=== PATIENT | male | born 1980 | race Caucasian/White ===

== ENCOUNTER 2017-03-27 17:40 | Emergency (ER) | payer OTHER ==
[~2017-03-27] VITALS: Ht 182.9 cm; Wt 135.0 kg
[~2017-03-27 17:40] MED LIST: LISI-360 PO; VIBR100C PO
[2017-03-27 17:58] VITALS: BP 161/82; PULSE 77; RESP 16; TEMP 98.4; O2SAT 98
--- NOTE | 2017-03-27 19:03 | RADRPT ---
EXAM DATE/TIME: 03/27/2017 18:34 [place] COMPARISON: No previous studies available for comparison. INDICATIONS : Bone infarction. MEDICAL HISTORY : Previously broken great toe. SURGICAL HISTORY : None. ENCOUNTER: Initial ACUITY: 2 days PAIN SCORE: 7/10 LOCATION: Right plantar surface of first through third digits FINDINGS: There is no acute fracture or dislocation of the right foot. Degenerative arthritis is noted involvi ng the right 1st interphalangeal joint. Soft tissue swelling is noted along the medial aspect of the great toe. Erosive changes are noted involving the medial aspect of the 1st metatarsal head which r aises the possibility of gouty arthritis. Mild degenerative changes are noted involving the ankle jerel int. CONCLUSION: 1. No acute fracture or dislocation. 2. Soft tissue swelling involving the medial aspect of the right great toe with erosive changes celeste g the medial aspect of the 1st metatarsal heads suggestive of possible gouty arthritis. Clinical cor relation is recommended. 3. 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 Rhys Hollins MD on March 27, 2017 at 18:48 Board Certified Radiologist. This report was verified electronically.
[2017-03-27] MEDS ORDERED: ceFAZolin 2 GM PREMIX 50 ML IV ONE (20:00)
[2017-03-27] MEDS ORDERED: CIPROFLOXACIN 400 MG PREMIX 200 ML IV ONE (20:00)
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
[2017-03-27] MEDS ORDERED: LOSA100T PO (20:32)
[2017-03-27] MEDS ORDERED: NOVOINJ SQ (20:32)
[2017-03-27 20:34] LABS: AUTOMATED NEUTROPHIL # 12.8 TH/MM3 (1.8-7.7); BASOPHIL # 0.1 TH/MM3 (0-0.2); BASOPHIL % 0.6 % (0.0-2.0); EOSINOPHIL # 0.2 TH/MM3 (0-0.4); HEMO FLAGS DIFF FINAL; LYMPH % 16.9 % (9.0-44.0); LYMPHOCYTE # 2.9 TH/MM3 (1.0-4.8); MEAN CELL VOLUME 84.1 FL (80.0-100.0); MEAN CORPUSCULAR HEMOGLOBIN 29.2 PG (27.0-34.0); MEAN CORPUSCULAR HGB CONC 34.7 % (32.0-36.0); MONO % 5.9 % (0.0-8.0); NEUT % 75.6 % (16.0-70.0); PLATELET COUNT 300 TH/MM3 (150-450); RED BLOOD COUNT 4.76 MIL/MM3 (4.50-5.90); RED CELL DISTRIBUTION WIDTH 13.7 % (11.6-17.2)
[2017-03-27 20:54] LABS: BICARBONATE 28.8 MEQ/L (21.0-32.0); POTASSIUM 3.7 MEQ/L (3.5-5.1)
[2017-03-27] MEDS ORDERED: GLIM4TAB PO (21:08)
[2017-03-27] MEDS ORDERED: INSU1INJ14 SQ (21:08)
[2017-03-27] MEDS ORDERED: CIPR-9 PO (22:21)
[2017-03-27] MEDS ORDERED: CEPH-460 PO (22:21)
[2017-03-27] MEDS ORDERED: CIPROFLOXACIN 500 MG TAB PO ONE (22:30)
[2017-03-27] MEDS ORDERED: CEPHALEXIN MONOHYDRATE 500 MG CAP PO ONE (22:30)
== END 2017-03-27 23:35 | disposition home or self-care (01) ==
LOC: NEPD 17:40
DX: L03.031 Cellulitis of right toe (principal); B95.61 Methicillin susceptible Staphylococcus aureus infection as the cause of diseases classified elsewhere; B95.1 Streptococcus, group B, as the cause of diseases classified elsewhere; B96.89 Other specified bacterial agents as the cause of diseases classified elsewhere; I10 Essential (primary) hypertension; M79.89 Other specified soft tissue disorders; E11.9 Type 2 diabetes mellitus without complications; G62.9 Polyneuropathy, unspecified
CPT/HCPCS: 73630; 80048; 85025; 86403; 87040; 87070; 87077; 87186; 96365; 96366; 96375; 99284; J0690; J0744; 87205

== ENCOUNTER 2018-07-11 19:38 | Inpatient (IN) ==
[2018-07-11 21:06] LABS: Baso # (Auto) 0.1 th/mm3 (0.0-0.2); Baso % (Auto) 0.5 % (0.0-2.0); Eos # (Auto) 0.4 th/mm3 (0.0-0.4); Eos % (Auto) 3.5 % (0.0-4.0); Hematocrit 35.9 % (39.0-51.0); Hemoglobin 12.4 gm/dL (13.0-17.0); Lymph # (Auto) 3.2 th/mm3 (1.0-4.8); Lymph % (Auto) 27.5 % (9.0-44.0); Mean Corpuscular HGB Conc 34.6 % (32.0-36.0); Mean Corpuscular Hemoglobin 28.5 pg (27.0-34.0); Mean Corpuscular Volume 82.3 fL (80.0-100.0); Mean Platelet Volume 7.1 fL (7.0-11.0); Mono # (Auto) 0.9 th/mm3 (0.0-0.9); Mono % (Auto) 8.1 % (0.0-8.0); Neut % (Auto) 60.4 % (16.0-70.0); Platelet Count 405 th/mm3 (150-450); Red Blood Count 4.36 mil/mm3 (4.50-5.90); Red Cell Distribution Width 13.6 % (11.6-17.2); White Blood Count 11.5 th/mm3 (4.0-11.0)
--- NOTE | 2018-07-11 21:15 | XR ---
EXAM DATE: 07/11/2018 9:10 PM EST AGE/SEX: 38 years / Male INDICATIONS: Left foot pain, swelling with no known injury. Diabetic ulcer on plantar surface of eugenie t. CLINICAL DATA: This is the patient's initial encounter. Patient reports that signs and symptoms have been present for 3 weeks and indicates a pain score of 6/10. MEDICAL/SURGICAL HISTORY: Diabetes. None. COMPARISON: No prior exams available for comparison. FINDINGS: There is fracture dislocations involving the first through fifth tarsometatarsal joints with heteroto pic bone formation and bone fragmentation. First and second metatarsals are displaced medially and th e third through fifth are displaced laterally. Overall the tarsal bones have been displaced towards t he plantar surface relative to the base of the metatarsal bones. Diffuse soft tissue swelling. No rad iopaque foreign body. CONCLUSION: Lisfranc fracture and neuropathic joint. Electronically signed by: Nirmal Sommers MD Board Certified Radiologist 07/11/2018 9:13 PM EST
[2018-07-11 21:30] LABS: Albumin 3.3 g/dL (3.4-5.0); Anion Gap 5 meq/L (5-15); Aspartate Aminotransferase 12 U/L (15-37); Blood Urea Nitrogen 12 mg/dL (7-18); Calcium 9.1 mg/dL (8.5-10.1); Carbon Dioxide 29.7 meq/L (21.0-32.0); Chloride 102 meq/L (98-107); Glomerular Filtration Rate Greater Than 89 mL/min (>89); Glucose,Random 91 mg/dL (74-106); Potassium 3.8 meq/L (3.5-5.1); Sodium 137 meq/L (136-145)
[2018-07-11 21:32] LABS: Alanine Aminotransferase 21 U/L (12-78)
[2018-07-11 21:33] LABS: Alkaline Phosphatase 109 U/L (45-117); Total Protein 8.3 g/dL (6.4-8.2)
--- NOTE | 2018-07-11 22:32 | ED ---
HPI General Chief complaint: Extremity Problem,Nontraumatic Stated complaint: Lt foot injury Time Seen by Provider: 07/11/18 20:19 Source: patient Mode of arrival: ambulatory Limitations: no limitations History of Present Illness HPI Narrative: 38-year-old male with a history of diabetes and ulcers to his feet bilaterally that presents to the ED for evaluation of swelling and redness to his left foot. Per patient it started almost a week ago. Per patient is causing him a lot of discomfort and he has been using a boot to get about. Per patient the pain is 6 out of 10. He denies any trauma or injury. Per patient she follows with Dr. Navas for podiatry closely. And has been on 3 different antibiotics including Cipro x2 and Bactrim x1. Per patient he follows with her secondary to ulcers to both his feet. Per patient the ulcers appear to have improved and currently he is in no antibiotics. Per patient he last saw Dr. Navas last week and he did not had the swelling at the time. He states having some numbness which appears to be chronic for him. No trauma or fall. No fevers chills or sweats. Related Data Home Medications Medication Instructions Recorded Confirmed insulin aspart U-100 [Novolog 5 unit SUBCUT QPM 07/11/18 07/11/18 Flexpen U-100 Insulin] losartan 100 mg PO DAILY 07/11/18 07/11/18 Allergies Allergy/AdvReac Type Severity Reaction Status Date / Time No Known Allergies Allergy Verified 07/11/18 20:12 Review of Systems ROS: all other systems reviewed are negative [facility] Medical History Medical History Diabetes (Acute) Hypertension (Acute) Surgical History Surgical History No history of previous surgery (Acute) Social History Social History Substance History: No History of Abuse Second Hand Smoke Exposure: Yes Smoking Status: Never smoker How Often Do You Have a Drink Containing Alcohol: Never Recent Travel [facility] within the Last 8 Weeks: No Recent Out of Country Travel within the Last 8 Weeks: No Immunization History Tetanus Immunization: <5 Years Exam Narrative Exam Narrative: GENERAL: Well-appearing SKIN: Focused skin assessment warm/dry. HEAD: Atraumatic. Normocephalic. EYES: Pupils equal and round. No scleral icterus. No injection or drainage. ENT: No nasal bleeding or discharge. Mucous membranes pink and moist. Tongue is midline. No Uvula deviation. NECK: Trachea midline. No JVD. CARDIOVASCULAR: Regular rate and rhythm. No murmur appreciated. RESPIRATORY: No accessory muscle use. Clear to auscultation. Breath sounds equal bilaterally. GASTROINTESTINAL: Abdomen soft, non-tender, nondistended. Hepatic and splenic margins not palpable. MUSCULOSKELETAL: No obvious deformities. No clubbing. No cyanosis. No edema. Full range of motion of the upper and lower extremities bilaterally. 2+ pulses bilaterally. Patient does have 1+ pitting edema on the foot and erythema as well as swelling and warmness to touch on the medial aspect of the foot but also noted on the dorsal and plantar aspect of the foot. Full range of motion of the digits. Good capillary refill. Patient does have a healing ulcer on the left lower foot. About 2 cm in diameter. NEUROLOGICAL: Awake and alert. No obvious cranial nerve deficits. Motor grossly within normal limits. Normal speech. PSYCHIATRIC: Appropriate mood and affect; insight and judgment normal. Course Initial Documented Vital Signs Temperature 98.4 F 07/12/18 03:14 Pulse Rate 104 H 07/12/18 03:14 Respiratory Rate 18 07/12/18 03:14 Blood Pressure 152/71 H 07/12/18 03:14 Pulse Oximetry 95 07/12/18 03:14 Last Documented Vital Signs Temperature 98.4 F 07/12/18 03:14 Pulse Rate 104 H 07/12/18 03:14 Respiratory Rate 18 07/12/18 03:14 Blood Pressure 152/71 H 07/12/18 03:14 Pulse Oximetry 95 07/12/18 03:14 Medical Decision Making MANISH Attestation MANISH supervised visit: Yes Attestation: I, Dr. Condon, have reviewed the advance practice practitioner's documentation and am in agreement, met with the patient face to face, made the diagnosis, and the medical decision making was done by me. The patient was initially evaluated by Rafa, the MANISH. Please see their complete history and physical. *My assessment and Findings: The patient presents with a history of diabetes and foot ulcers that have been being monitored by Dr. Navas a local field operations supervisor. Over the last week he has developed increased pain and swelling involving the left foot. He denies any injury. He reports that he has been on antibiotic for treatment that includes ciprofloxacin and Bactrim. He denies having any known recent fevers. He reports that it is painful to weight-bear. During the course of the patient's emergency department visit, the patient's history, examination, and differential diagnosis were reviewed with the patient. The patient was placed on a radiation monitor with oximetry and frequent blood pressure monitoring. The patient had [-] IV access obtained and blood work sent for analysis. The patient's diagnostic studies were reviewed and remarkable for a white count of 11.5, hemoglobin 12.4, platelets 405 with 8.1 monocytes, chemistries remarkable for an AST of 12, total protein 8.3, albumin 3.3, C-reactive protein is elevated at 6.6, lactic acid is 1.9 . An x-ray of the left foot reveals a Lisfranc fracture and neuropathic joint. The patient's case was discussed with the field operations supervisor monotypist, Dr. Mitchell by Gabriel, the physician tax accounting assistant. She recommended further evaluation with an MRI. The patient's MRI of the foot revealed evidence of osteomyelitis with deep soft tissue infection. The patient will be admitted to the hospital for IV antibiotic and consultation with a field operations supervisor. The patient was started on broad -spectrum antibiotics to include Zosyn and vancomycin. The patient's case including history, pertinent physical examination findings, and laboratory studies were discussed with Dr. Garcia. It was agreed that the patient would be admitted to the [facility] hospitalist service. The patient's results were discussed with the patient, including the plan of care. I explained that further testing and/ or monitoring is indicated based on the patient's history, examination, and/ or laboratory findings. Therefore, I recommended admission for additional evaluation. The patient expressed understanding and was agreeable with this plan. The patient was admitted to the hospital in guarded condition and sent to a bed under the care of the [facility] hospitalist's service. MDM Narrative Medical decision making narrative: 38-year-old male who presents to the ED for evaluation of lower foot swelling and pain. Patient was properly examined and was found to have signs and symptoms of unclear etiology. Labs and imaging were ordered. Labs and imaging showed what appears to be a Lisfranc fracture of the left foot. This does raise possibility of Charcot. Case was discussed with my attending who recommends to speak with podiatry. I spoke with Dr. Mitchell over the phone who states that this could likely be Charcot but recommends that an MRI be done. She does however state that if there is any sign of skin opening where the erythema to highly consider admitting for IV antibiotics as patient does have an elevated CRP and white blood cell count. Case discussed with my attending who agrees with plan. MRI was ordered. MRI showed Medical Screen Exam Complete: Yes Emergency Medical Condition: Yes Differential Diagnosis Differential Diagnosis: Diabetic ulcer versus cellulitis versus fracture versus foreign body versus osteomyelitis Medical Records Medical records reviewed: Yes I reviewed the patient's medical records. Lab Data Lab results reviewed: Yes I reviewed the patient's lab results. Result diagrams: 07/11/18 20:25 07/11/18 20:25 Lab Results 07/11/18 07/11/18 07/11/18 Range/Units 20:25 20:25 20:25 WBC 11.5 H (4.0-11.0) th/mm3 RBC 4.36 L (4.50-5.90) mil/mm3 Hgb 12.4 L (13.0-17.0) gm/dL Hct 35.9 L (39.0-51.0) % MCV 82.3 (80.0-100.0) fL MCH 28.5 (27.0-34.0) pg MCHC 34.6 (32.0-36.0) % RDW 13.6 (11.6-17.2) % Plt Count 405 (150-450) th/mm3 MPV 7.1 (7.0-11.0) fL Neut % (Auto) 60.4 (16.0-70.0) % Lymph % (Auto) 27.5 (9.0-44.0) % [place] % (Auto) 8.1 H (0.0-8.0) % Eos % (Auto) 3.5 (0.0-4.0) % Baso % (Auto) 0.5 (0.0-2.0) % Neut # (Auto) 7.0 (1.8-7.7) th/mm3 Lymph # (Auto) 3.2 (1.0-4.8) th/mm3 [place] # (Auto) 0.9 (0.0-0.9) th/mm3 Eos # (Auto) 0.4 (0.0-0.4) th/mm3 Baso # (Auto) 0.1 (0.0-0.2) th/mm3 WBC Differential . Differential Comment Auto diff final Sodium 137 (136-145) meq/L Potassium 3.8 (3.5-5.1) meq/L Chloride 102 (98-107) meq/L Carbon Dioxide 29.7 (21.0-32.0) meq/L Anion Gap 5 (5-15) meq/L BUN 12 (7-18) mg/dL Creatinine 0.89 (0.60-1.30) mg/dL Estimated GFR Greater than 89 (>89) mL/min Random Glucose 91 (74-106) mg/dL Lactic Acid 1.9 (0.4-2.0) mmol/L Calcium 9.1 (8.5-10.1) mg/dL Total Bilirubin 0.7 (0.2-1.0) mg/dL AST 12 L (15-37) U/L ALT 21 (12-78) U/L Alkaline Phosphatase 109 (45-117) U/L C-Reactive Protein (0.00-0.30) mg/dL Total Protein 8.3 H (6.4-8.2) g/dL Albumin 3.3 L (3.4-5.0) g/dL 07/11/18 Range/Units 20:25 WBC (4.0-11.0) th/mm3 RBC (4.50-5.90) mil/mm3 Hgb (13.0-17.0) gm/dL Hct (39.0-51.0) % MCV (80.0-100.0) fL MCH (27.0-34.0) pg MCHC (32.0-36.0) % RDW (11.6-17.2) % Plt Count (150-450) th/mm3 MPV (7.0-11.0) fL Neut % (Auto) (16.0-70.0) % Lymph % (Auto) (9.0-44.0) % [place] % (Auto) (0.0-8.0) % Eos % (Auto) (0.0-4.0) % Baso % (Auto) (0.0-2.0) % Neut # (Auto) (1.8-7.7) th/mm3 Lymph # (Auto) (1.0-4.8) th/mm3 [place] # (Auto) (0.0-0.9) th/mm3 Eos # (Auto) (0.0-0.4) th/mm3 Baso # (Auto) (0.0-0.2) th/mm3 WBC Differential Differential Comment Sodium (136-145) meq/L Potassium (3.5-5.1) meq/L Chloride (98-107) meq/L Carbon Dioxide (21.0-32.0) meq/L Anion Gap (5-15) meq/L BUN (7-18) mg/dL Creatinine (0.60-1.30) mg/dL Estimated GFR (>89) mL/min Random Glucose (74-106) mg/dL Lactic Acid (0.4-2.0) mmol/L Calcium (8.5-10.1) mg/dL Total Bilirubin (0.2-1.0) mg/dL AST (15-37) U/L ALT (12-78) U/L Alkaline Phosphatase (45-117) U/L C-Reactive Protein 6.60 H (0.00-0.30) mg/dL Total Protein (6.4-8.2) g/dL Albumin (3.4-5.0) g/dL Imaging Data Attestation: I personally reviewed and interpreted this imaging study as follows : Radiologist's impression: Foot X-Ray 07/11/18 20:35 CONCLUSION: Lisfranc fracture and neuropathic joint. Foot MRI 07/11/18 22:02 CONCLUSION: 1. Severe neuropathic changes with extensive midfoot fracture dislocations, as above. 2. Diffusely abnormal signal and enhancement involving all the metatarsal and tarsal bones as well as the calcaneus concerning for osteomyelitis. 3. Diffuse soft tissue edema and abnormal signal throughout the midfoot with 2 ill defined peripherally enhancing fluid collections in the medial midfoot measuring 5.5 x 2.3 cm and 0.8 x 1.8 cm concerning for abscess. Discharge Plan Discharge Disposition Patient Disposition: ED Admit(ED Internal Use Only) Discharge Order Discharge Orders: ED Use Only Admit Order (Routine); Ordered 07/12/18 Ordered By: Chelsea Condon Discharge Details Diagnosis: Acute osteomyelitis of left foot Physicians Team ED Provider: Chelsea Condon ED Midlevel Provider: Rafa Nair Primary Care Provider: Brandon Gordon Attending Provider: Jose Craig Other Providers: Nadja Mitchell Status ED Status: Left Department Discharge Information Discharge Date/Time: 07/12/18 02:41
[2018-07-11] MEDS ORDERED: Gadobutrol PF 15 MMOL/15 ML Vial (for RAD) IV.SIG ONE (22:33)
--- NOTE | 2018-07-11 23:19 | MR ---
EXAM DATE: 07/11/2018 10:58 PM EST AGE/SEX: 38 years / Male INDICATIONS: Abscess. Non healing wound on bottom of foot beneath 3,4,5th toes(over a year). Left foot swelling, painful and red. CLINICAL DATA: This is the patient's initial encounter. Patient reports that signs and symptoms have been present for 3 days and indicates a pain score of 6/10. MEDICAL/SURGICAL HISTORY: . DM, HTN Cholecystectomy. COMPARISON: [facility], FOOT COMPLETE LEFT 3V, 07/11/2018. . TECHNIQUE: Multiplanar, multisequence MRI examination was performed without contrast and after th e intravenous administration of 13 ml Gadavist (gadobutrol) single exam dose. FINDINGS: Bones: Redemonstration of hallux valgus deformity. Fracture and fragmentation of all the proximal met atarsals with diffuse bone marrow edema and enhancement most notably in the distal first metatarsal. There is also fragmentation and erosive changes with bone marrow edema and enhancement involving the cuneiforms, cuboid and navicular. There is also bone marrow edema involving the calcaneus. Joint Spaces: There is severe dislocation of the metatarsocuneiform and Lisfranc joints with dislocat ion of the metatarsals dorsally. Soft Tissues: Extensive soft tissue edema and abnormal signal throughout the midfoot with focal ill-d efined peripherally enhancing fluid collections in the proximal midfoot measuring 5.5 x 2.3 cm and mo re distally measuring 8 x 18 mm. CONCLUSION: 1. Severe neuropathic changes with extensive midfoot fracture dislocations, as above. 2. Diffusely abnormal signal and enhancement involving all the metatarsal and tarsal bones as well a s the calcaneus concerning for osteomyelitis. 3. Diffuse soft tissue edema and abnormal signal throughout the midfoot with 2 ill defined periphera lly enhancing fluid collections in the medial midfoot measuring 5.5 x 2.3 cm and 0.8 x 1.8 cm concern ing for abscess. Electronically signed by: Boris Carroll MD Board Certified Radiologist 07/11/2018 11:[address]
[2018-07-11] MEDS ORDERED: Vancomycin Inj 1,000 MG in Sodium Chlor 0.9% Inj 250 ML IV.SIG ONE (23:47)
[2018-07-11] MEDS ORDERED: Piperacil/Tazo 3.375 GM Premix 3.375 GM/50 ML PIGGYBACK IV.SIG ONE (23:47)
[2018-07-12 08:36] VITALS: RESP 20
[2018-07-12] MEDS ORDERED: Dextrose 50% in Water 50 ML Vial IV.PUSH PRN (11:34)
--- NOTE | 2018-07-12 11:41 | P.HPIM ---
History of Present Illness Primary Care Physician: Brandon Gordon MD History of Present Illness: Pt is 38 yo with insulin dependent diabetes with last hgba1c 7.8 last month. Has long hx poor control and peripheral neuropathy. He has had problems with feet ulcerations and says he was on po abx cipro the bacrtrim x 2 for about a month until this past week. This was for an ulceration of left foot which he says is much smaller and improved. This past week developed more acute redness/swelling of the dorsal and medial left foot. In ED last night he had xray and mri along with vanco and zosyn. He was placed in a splint over the left foot for fracture concerns. They called the risk management professional international nurse who thought it was an acute charcot foot problem and not acute infection. An MRI was done per ED showing multple fracture dislocations and questioning osteo and fluid collections vs abscess. PMH; diabetes. hx poor control. hgba1c now 7.8 peripheral neuropathy due to dm htn lap appe. sh: no etoh/tob fh: nc meds losartan 100mg daily ssi novology twice daily Diagnosis (1) Charcot foot due to diabetes mellitus: (2) Diabetes: (3) Peripheral neuropathy: Inpatient Certification Inpatient Certification: I certify that the inpatient services were ordered in accordance with Medicare regulations governing the order. This includes certification that hospital inpatient services are reasonable and necessary and in the case of services not specified as inpatient-only under 42 CFR 419.22(n), that they are appropriately provided as inpatient services in accordance to with the 2-midnight benchmark under 43 CFR 412.3(e) Medications and Allergies Allergies Allergy/AdvReac Type Severity Reaction Status Date / Time No Known Allergies Allergy Verified 07/11/18 20:12 Home Medications Medication Instructions Recorded Confirmed Type insulin aspart U-100 [Novolog 5 unit SUBCUT QPM 07/11/18 07/11/18 History Flexpen U-100 Insulin] losartan 100 mg PO DAILY 07/11/18 07/11/18 History Active Medications: Active Medications Dextrose (D50w Vial) 50 ml IV.PUSH UNSCH PRN PRN Reason: PER HYPOGLYCEMIA PROTOCOL Glucagon (Glucagon Inj) 1 mg OTHER PRN PRN PRN Reason: for Hypoglycemia Protocol Insulin Aspart (Novolog Insulin Correctional Sugar Inj) 0 unit SQ ACHS NATHANIEL; Protocol Non-Formulary Medication (Losartan [Losartan]) 100 mg PO DAILY NATHANIEL Physical Exam Vital signs: Last Vital Signs Temp 98.3 F 07/12/18 07:15 Pulse 100 H 07/12/18 07:15 Resp 20 07/12/18 07:15 BP 180/81 H 07/12/18 07:15 Pulse Ox 95 07/12/18 07:15 Narrative: nad lying in bed heart reg lung cta abd s/nt ext left foot/lower leg in splint cast Results Labs CBC & Chem 7: 07/11/18 20:25 07/11/18 20:25 Caprini VTE Risk Assessment Caprini VTE Risk Assessment: Moderate/High Risk (score >= 2) Caprini Risk Assessment Model: Point Value = 1 Point Value = 2 Point Value = 3 Point Value = 5 Age 41-60 Minor surgery BMI > 25 kg/m2 Swollen legs Varicose veins or History of unexplained or recurrent spontaneous Oral contraceptives or hormone replacement Sepsis (< 1 month) Serious lung disease, including pneumonia (< 1 month) Abnormal pulmonary function Acute myocardial infarction Congestive heart failure (< 1 month) History of inflammatory bowel disease Medical patient at bed rest Age 61-74 Arthroscopic surgery Major open surgery (> 45 min) Laparoscopic surgery (> 45 min) Malignancy Confined to bed (> 72 hours) Immobilizing plaster cast Central venous access Age >= 75 History of VTE Family history of VTE Factor V Leiden Prothrombin [id number] Lupus anticoagulant Anticardiolipin antibodies Elevated serum homocysteine Heparin-induced thrombocytopenia Other congenital or acquired thrombophilia Stroke (< 1 month) Elective arthroplasty Hip, pelvis, or leg fracture Acute spinal cord injury (< 1 month) Prophylaxis Regimen: Total Risk Factor Score Risk Level Prophylaxis Regimen 0-1 Low Early ambulation 2 Moderate Order ONE of the following: *Sequential Compression Device (SCD) *Heparin 5000 units SQ BID 3-4 Higher Order ONE of the following medications: *Heparin 5000 units SQ TID *Enoxaparin/Lovenox 40 mg SQ daily (WT < 150 kg, CrCl > 30 mL/min) *Enoxaparin/Lovenox 30 mg SQ daily (WT < 150 kg, CrCl > 10-29 mL/min) *Enoxaparin/Lovenox 30 mg SQ BID (WT < 150 kg, CrCl > 30 mL/min) AND/OR *Sequential Compression Device (SCD) 5 or more Highest Order ONE of the following medications: *Heparin 5000 units SQ TID (Preferred with Epidurals) *Enoxaparin/Lovenox 40 mg SQ daily (WT < 150 kg, CrCl > 30 mL/min) *Enoxaparin/Lovenox 30 mg SQ daily (WT < 150 kg, CrCl > 10-29 mL/min) *Enoxaparin/Lovenox 30 mg SQ BID (WT < 150 kg, CrCl > 30 mL/min) AND *Sequential Compression Device (SCD) Assessment and Plan Assessment (1) Charcot foot due to diabetes mellitus: Code(s): E11.610 - Type 2 diabetes mellitus with diabetic neuropathic arthropathy Status: Acute (2) Diabetes: Code(s): E11.9 - Type 2 diabetes mellitus without complications Status: Chronic (3) Peripheral neuropathy: Code(s): G62.9 - Polyneuropathy, unspecified Status: Chronic Plan 1. left charcot foot 2. diabetes 3. diabetes related peripheral neuropathy 4. htn MRI left foot: 1. Severe neuropathic changes with extensive midfoot fracture dislocations, as above.2. Diffusely abnormal signal and enhancement involving all the metatarsal and tarsal bones as well as the calcaneus concerning for osteomyelitis.3. Diffuse soft tissue edema and abnormal signal throughout the midfoot with 2 ill defined peripherally enhancing fluid collections in the medial midfoot measuring 5.5 x 2.3 cm and 0.8 x 1.8 cm concerning for abscess. Discussed with podiatry. Pt believed to have acute charcot foot changes and not acute abscess or osteo. Podiatry will officially evaluate the pt later today and confirm. Pt recieved iv abx last night and I will hold off on further abx unless podiatry feels it truly is infected. Currently the pt is splinted. He will remain nonweightbearing over the foot. resume home bp meds. novolog for bg. DC when ok with podiatry. ADDENDUM; SPOKE WITH PODIATRY DR HONG. SHE BELIEVES THS IS ACUTE CHARCOT AND NOT ANY TYPE OF INFECTION. SHE WILL PLACE PT IN CAST. NONWEIGHTBEARING FOR NOW. CRUTCH AND WALKER. I CALLED [facility] AND KNEE SCOOTER NOT COVERED BENEFIT. DC HOME H&P: Quality VTE Deep Vein Thrombosis/Pulmonary Embolism Present on Admission: No
[2018-07-12] MEDS: Insulin NovoLOG Aspart Correctional Sugar Inj SQ SCH ×2 (12:50→17:55)
[2018-07-12 13:34] VITALS: TEMP 98.2
[2018-07-12 16:20] VITALS: BP 169/94; PULSE 95; O2SAT 94
--- NOTE | 2018-07-12 16:22 | P.CON ---
History of Present Illness Service: Foot and ankle surgery/podiatry Consult date: 07/12/18 Reason for Consult: Left foot erythema, edema; Charcot versus osteomyelitis Primary Care Provider: Brandon Gordon MD History of Present Illness: Podiatry consulted for this 38-year-old insulin-dependent diabetic his last hemoglobin A1c was 7.8 last month. Patient has peripheral neuropathy and has been seen for bilateral foot ulcerations with his change management coordinator Dr. Navas. Patient states he has been on Cipro and Bactrim for about a month until last week. Patient has noted improvement in ulcer size. Patient presents to the emergency department with increased redness and swelling. Patient denies any nausea vomiting fevers or chills. He denies being on his foot more than usual. Review of Systems Constitutional: Denies chills, Denies fatigue, Denies fever(s), Denies night sweats Cardiovascular: Denies chest pain, Denies shortness of breath Respiratory: Denies cough Gastrointestinal: Denies abdominal pain PMFSH - History History Provided By: Patient - Medical History Medical History: Medical History (Last Reviewed 07/12/18 @ 16:15 by Zainab Childs DPM) Diabetes Hypertension - Surgical History Surgical History: Surgical History (Last Reviewed 07/12/18 @ 16:15 by Zainab Childs DPM) No history of previous surgery - Tobacco History Second Hand Smoke Exposure: Yes Smoking Status: Never smoker - Alcohol History How Often Do You Have a Drink Containing Alcohol: Never - Substance Use History Substance History: No History of Abuse - Travel History Recent Travel in the [place] Within the Last 8 Weeks: No Recent Travel Out of the Country Within the Last 8 Weeks: No - Immunization History Tetanus Immunization: <5 Years Hx Influenza Vaccine This Season: Yes Medications and Allergies Active Medications: Active Medications Dextrose (D50w Vial) 50 ml IV.PUSH UNSCH PRN PRN Reason: PER HYPOGLYCEMIA PROTOCOL Glucagon (Glucagon Inj) 1 mg OTHER PRN PRN PRN Reason: for Hypoglycemia Protocol Insulin Aspart (Novolog Insulin Correctional Sugar Inj) 0 unit SQ ACHS NATHANIEL; Protocol Last Admin: 07/12/18 12:50 Dose: 4 unit Losartan Potassium (Cozaar) 100 mg PO DAILY NATHANIEL Last Admin: 07/12/18 12:31 Dose: 100 mg Allergies Allergy/AdvReac Type Severity Reaction Status Date / Time No Known Allergies Allergy Verified 07/11/18 20:12 Home Medications Medication Instructions Recorded Confirmed Type insulin aspart U-100 [Novolog 5 unit SUBCUT QPM 07/11/18 07/11/18 History Flexpen U-100 Insulin] losartan 100 mg PO DAILY 07/11/18 07/11/18 History Physical Exam Vital signs: Vital Signs 07/12/18 03:14 07/12/18 07:15 07/12/18 12:10 Temperature 98.4 F 98.3 F 98.2 F Pulse Rate 104 H 100 H 94 H Respiratory Rate 18 20 20 Blood Pressure 152/71 H 180/81 H 170/80 H Pulse Oximetry 95 95 97 Intake & Output 07/11/18 07/12/18 07/12/18 18:59 06:59 18:59 Intake Total 50 / 50 Balance 50 / 50 Weight 136.531 kg Intake: IV 50 / 50 Zosyn 3.375 GM Premix 3.375 gm 50 / 50 In 50 ml @ 100 mls/hr IV.SIG ONCE ONE Rx#:[id number] Other: # Voids 1 Date of Last Bowel Movement 07/11/18 Weight On Admission 136.531 kg Narrative: Lower extremity physical exam: Vascular: Dorsalis pedis palpable, posterior tibial palpable. Capillary refill time within normal limits to digits x5 bilateral foot. Edema present left foot locally to midfoot. Neuro: Gross sensation intact to bilateral lower extremity. Pinpoint sensation decreased. No hyperalgesia noted to bilateral lower extremity Dermatology: Normal temperature and turgor to bilateral lower extremity. Sub- met 4 5 ulcer noted to left foot with hyperkeratotic edges noted, no drainage noted, no fluctuance noted, no probe to bone noted, no local signs of infection. Right foot hallux ulceration noted with keratotic skin edges, no drainage noted, no fluctuance noted, no probe to bone noted, no local signs of infection. Musculoskeletal: Widening of the midfoot noted with prominence at medial cuneiform first metatarsal joint. Erythema, edema, deformity noted to left foot. Results - Labs CBC & Chem 7: 07/11/18 20:25 07/11/18 20:25 Labs: Laboratory Results - last 24 hr 07/11/18 07/11/18 07/11/18 20:25 20:25 20:25 WBC 11.5 H RBC 4.36 L Hgb 12.4 L Hct 35.9 L MCV 82.3 MCH 28.5 MCHC 34.6 RDW 13.6 Plt Count 405 MPV 7.1 Neut % (Auto) 60.4 Lymph % (Auto) 27.5 [place] % (Auto) 8.1 H Eos % (Auto) 3.5 Baso % (Auto) 0.5 Neut # (Auto) 7.0 Lymph # (Auto) 3.2 [place] # (Auto) 0.9 Eos # (Auto) 0.4 Baso # (Auto) 0.1 WBC Differential . Differential Comment Auto diff final Sodium 137 Potassium 3.8 Chloride 102 Carbon Dioxide 29.7 Anion Gap 5 BUN 12 Creatinine 0.89 Estimated GFR Greater than 89 POC Glucose Random Glucose 91 Lactic Acid 1.9 Calcium 9.1 Total Bilirubin 0.7 AST 12 L ALT 21 Alkaline Phosphatase 109 C-Reactive Protein Total Protein 8.3 H Albumin 3.3 L 07/11/18 07/12/18 20:25 12:33 WBC RBC Hgb Hct MCV MCH MCHC RDW Plt Count MPV Neut % (Auto) Lymph % (Auto) [place] % (Auto) Eos % (Auto) Baso % (Auto) Neut # (Auto) Lymph # (Auto) [place] # (Auto) Eos # (Auto) Baso # (Auto) WBC Differential Differential Comment Sodium Potassium Chloride Carbon Dioxide Anion Gap BUN Creatinine Estimated GFR POC Glucose 216 H Random Glucose Lactic Acid Calcium Total Bilirubin AST ALT Alkaline Phosphatase C-Reactive Protein 6.60 H Total Protein Albumin - Imaging Impressions Foot X-Ray 07/11/18 20:35 CONCLUSION: Lisfranc fracture and neuropathic joint. Foot MRI 07/11/18 22:02 CONCLUSION: 1. Severe neuropathic changes with extensive midfoot fracture dislocations, as above. 2. Diffusely abnormal signal and enhancement involving all the metatarsal and tarsal bones as well as the calcaneus concerning for osteomyelitis. 3. Diffuse soft tissue edema and abnormal signal throughout the midfoot with 2 ill defined peripherally enhancing fluid collections in the medial midfoot measuring 5.5 x 2.3 cm and 0.8 x 1.8 cm concerning for abscess. Assessment and Plan - Plan 38-year-old male with left foot acute Charcot to midfoot with dislocated Lisfranc joint Patient examined and evaluated with all questions answered Discussed Charcot in great detail with patient No surgical intervention advised at this time during acute Charcot Patient will need to remain nonweightbearing until consolidation phase of Charcot In this clinical setting diagnosis despite MRI findings is reflective of an acute Charcot flare Patient will need to follow-up in office for total contact casting to offload left foot Patient is to remain strictly nonweightbearing to the left foot Left posterior splint to be placed No ice machine to left lower extremity Please place wound gel and dry sterile dressing to bilateral lower extremity ulceration Daily dressing changes please educate patient on daily dressing changes Please place ABD 4 x 4's to left heel as there is already maceration present from ice machine and splint
== END 2018-07-12 18:41 | disposition home or self-care (01) | DRG 74 ==
LOC: NEPE 19:38 → NEDA 07-12 00:04 → N05 07-12 02:41
PROVIDERS: ADMIT Hospitalist; ATTEND Hospitalist
CPT/HCPCS: 73630; 73720; 80053; 82948; 82962; 83605; 85025; 86140; 87040; 99285; A9585; E0113; J1815; J2543; J3370; J7050